=== PATIENT | male | born 1960 | race Caucasian/White ===

== ENCOUNTER 2018-11-30 21:41 | Observation (INO) | payer SELFPAY ==
[~2018-11-30] VITALS: Ht 172.7 cm; Wt 77.6 kg
[2018-11-30 22:13] LABS: BASOPHILS # (AUTO) 0.1 (0.0-0.1); BASOPHILS % 0.5 % (0.0-1.0); EOSINOPHILS # (AUTO) 0.1 (0.0-0.4); EOSINOPHILS % 0.7 % (0.0-6.0); HEMATOCRIT 49.3 % (38.2-49.6); HEMOGLOBIN 16.8 g/dL (14.0-18.0); LYMPHOCYTES # (AUTO) 1.8 (1.0-3.2); LYMPHOCYTES % 17.2 % (18.0-39.1); MEAN CORPUSCULAR HEMOGLOBIN 31.6 pg (28-32); MEAN CORPUSCULAR HGB CONC 34.1 g/dL (31-35); MEAN CORPUSCULAR VOLUME 92.7 fL (81-99); MONOCYTES # (AUTO) 0.5 (0.2-0.8); MONOCYTES % 4.9 % (4.4-11.3); NEUTROPHILS % 76.3 % (38.7-80.0); PLATELET COUNT 253 x10e3/uL (140-360); RED BLOOD COUNT 5.32 x10e6/uL (4.3-5.7); RED CELL DISTRIBUTION WIDTH 13.2 % (11.7-14.4)
[2018-11-30 22:28] LABS: ALANINE AMINOTRANSFERASE 16 IU/L (0-55); ALBUMIN 4.2 g/dL (3.5-5.0); ALBUMIN/GLOBULIN RATIO 1.3 (0.8-2.0); ALKALINE PHOSPHATASE 60 IU/L (40-150); BLOOD UREA NITROGEN 14 mg/dL (7-26); BUN/CREATININE RATIO 17 (6-25); CALCIUM 9.7 mg/dL (8.4-10.2); CARBON DIOXIDE 25 mmol/L (22-29); CHLORIDE 104 mmol/L (98-107); CREATINE KINASE 107 IU/L (30-200); CREATININE, SERUM 0.81 mg/dL (0.72-1.25); EST GLOMERULAR FILTRATION RATE > 60 ML/MIN (60-); GLUCOSE 85 mg/dL (74-118); SODIUM 138 mmol/L (136-145)
[2018-11-30 22:48] LABS: BILIRUBIN,URINE NEGATIVE (NEGATIVE); CLARITY,URINE CLEAR (CLEAR); COLOR,URINE YELLOW (YELLOW); KETONES,URINE NEGATIVE (NEGATIVE); LEUKOCYTE ESTERASE ,URINE NEGATIVE (NEGATIVE); NITRITE,URINE NEGATIVE (NEGATIVE); PROTEIN,URINE DIPSTICK NEGATIVE (NEGATIVE); URINE UROBILINOGEN 0.2 mg/dL (0.2 - 1)
--- NOTE | 2018-11-30 22:55 | Diagnostic Imaging Report ---
EXAMINATION: Head CT without contrast. HISTORY:Dizziness, altered mental status. COMPARISON:None. TECHNIQUE: Multidetector axial images were obtained from the foramen magnum to the vertex without contrast. The images were reconstructed using brain and bone algorithms. Thin section brain images were reformatted into coronal and sagittal planes. Dose modulation, iterative reconstruction, and/or weight based adjustment of the mA/kV was utilized to reduce the radiation dose to as low as reasonably achievable. Intravenous contrast: None IMAGE QUALITY: Acceptable. FINDINGS: Skull/scalp: No lytic or blastic. lesions. No surgical changes. Parenchyma: No abnormal density. No acute hemorrhage, mass or acute major vascular territorial infarct. Arteries: No density suggestive of thrombosis. Dural sinuses: No abnormal density suggestive of thrombosis. Ventricles: No hydrocephalus or displacement. Extra-axial spaces: No abnormal density. Brain volume: Normal for age. Craniocervical junction: No mass, Chiari malformation, or basilar invagination. Sella: No mass. Paranasal/mastoid sinuses: Imaged portions unremarkable. IMPRESSION: No intracranial abnormality. Signed by: Dr. Susan Flores M.D. on 11/30/2018 10:52 PM
[2018-11-30 23:01] LABS: BACTERIA,URINE FEW /HPF; EPITHELIAL CELLS,URINE FEW /LPF; WBC,URINE (MAN) 0-5 /HPF (0-5)
[2018-11-30] MEDS ORDERED: SODIUM CHLORIDE FLUSH 10 ML SYR INJ PRN (23:15)
[2018-11-30] MEDS ORDERED: ONDANSETRON HCL INJ 2MG/ML 2ML 2 MG/ML VIAL IV PRN (23:15)
--- NOTE | 2018-11-30 23:30 | Diagnostic Imaging Report ---
EXAMINATION: CHEST SINGLE (PORTABLE) INDICATION: Altered mental status COMPARISON: None FINDINGS: AP view TUBES and LINES: None. LUNGS: Lungs are well inflated. Lungs are clear. There is no evidence of pneumonia or pulmonary edema. PLEURA: No pleural effusion or pneumothorax. HEART AND MEDIASTINUM: The cardiomediastinal silhouette is unremarkable. Aortic arch calcifications. BONES AND SOFT TISSUES: No acute osseous lesion. Soft tissues are unremarkable. UPPER ABDOMEN: No free air under the diaphragm. IMPRESSION: No acute thoracic radiographic abnormality. Signed by: Jordan Rubio DO on 11/30/2018 11:27 PM
--- OUTSIDE RECORDS SUMMARY | 2018-11-30 23:36 | XMS REPORT ---
Author Author [facility] Address Unknown Phone Unavailable Care Team Providers Care Import And Export Clerk Name Role Phone Jeanette ROJAS Unavailable Unavailable Problems This patient has no known problems. Allergies, Adverse Reactions, Alerts This patient has no known allergies or adverse reactions. Medications This patient has no known medications. Results Test Description Test Time Test Comments Text Results Atomic Results Result Comments CHEST SINGLE (PORTABLE) 2018-11-30 23:25:00 [place] [address] Patient Name: RAYA PIMENTEL MR #: [id number] : 1960 Age/Sex: 58/M Req #: [id number] Adm Physician: Ordered by: SOHEILA ROJAS MD Report #: [id number] Location: ER Room/Bed: Procedure: [id number] DX/CHEST SINGLE (PORTABLE) Exam Date: 11/30/18 Exam Time: 2230 REPORT STATUS: Signed EXAMINATION: CHEST SINGLE (PORTABLE) I NDICATION: Altered mental status COMPARISON: None FINDINGS: AP view TUBES and LINES: None. LUNGS: Lungs are well inflated. Lungs are clear. There is no evidence of pneumonia or pulmonary edema. PLEURA: No pleural effusion or pneumothorax. HEART AND MEDIASTINUM: The cardiomediastinal silhouette is unremarkable. Aortic arch calcifications. BONES AND SOFT TISSUES: No acute osseous lesion. Soft tissues are unremarkable. UPPER ABDOMEN: No free air under the diaphragm. IMPRESSION: No acute thoracic radiographic abnormality. Signed by: Jordan Rubio DO on 11/30/2018 11:27 PM Dictated By: JORDAN RUBIO DO 26 Transcribed By: KAITY on 11/30/182326 COPY TO: SOHEILA ROJAS MD CT BRAIN WO 2018-11-30 22:47:00 [facility] [address] [place] [address] Patient Name: RAYA PIMENTEL MR #: [id number] : 1960 Age/Sex: 58/M Req #: [id number] Adm Physician: Ordered by: SOHEILA ROJAS MD Report #: [id number] Location: Room/Bed: Procedure: [id number] CT/CT BRAIN WO Exam Date: 11/30/18 Exam Time: 2220 REPORT STATUS: Signed EXAMINATION: Head CT without contrast. HISTORY:Diz ziness, altered mental status. COMPARISON:None. TECHNIQUE: Multidetector axial images were obtained from the foramen magnum to the vertex without contrast. The images were reconstructed using brain and bone algorithms. Thin section brain images were reformatted into coronal and sagittal planes. Dose modulation, iterative reconstruction, and/or weight based adjustment of the mA/kV was utilized to reduce the radiation dose to as low as reasonably achievable. Intravenous contrast: None IMAGE QUALITY: Acceptable. FINDINGS: Skull/scalp: No lytic or blastic. lesions. No surgical changes. Parenchyma: No abnormal density. No acute hemorrhage, mass or acute major vascular territorial infarct. Arteries: No density suggestive of thrombosis. Dural sinuses: No abnormal density suggestive of thrombosis. Ventricles: No hydrocephalus or displacement. Extra- axial spaces: No abnormal density. Brain volume: Normal for age. Craniocervical junction: No mass, Chiari malformation, or basilar invagination. Sella: No mass. Paranasal/mastoid sinuses: Imaged portions unremarkable. IMPRESSION: No intracranial abnormality. Signed by: Dr. Susan Flores M.D. on 11/30/2018 10:52 PM Dictated By: SUSAN FLORES MD 51 Transcribed By: KAITY on 11/30/182251 COPY TO: SOHEILA ROJAS MD
[2018-12-01] VITALS (9 sets, daily range): BP systolic 119–157; BP diastolic 62–79
--- NOTE | 2018-12-01 07:37 | NUR ---
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 Rounds by attending and orders in place for MRI brain and Carotid doppler to rule out any vascular etiologies, echo ordered to t/o any cardiac etiologies. Patient not on any home medications, call light within reach and will monitor.
[2018-12-01 08:27] LABS: BASOPHILS # (AUTO) 0.1 (0.0-0.1); BASOPHILS % 0.8 % (0.0-1.0); EOSINOPHILS # (AUTO) 0.1 (0.0-0.4); EOSINOPHILS % 1.8 % (0.0-6.0); HEMATOCRIT 47.6 % (38.2-49.6); HEMOGLOBIN 16.1 g/dL (14.0-18.0); LYMPHOCYTES # (AUTO) 2.5 (1.0-3.2); LYMPHOCYTES % 34.5 % (18.0-39.1); MEAN CORPUSCULAR HEMOGLOBIN 31.6 pg (28-32); MEAN CORPUSCULAR HGB CONC 33.8 g/dL (31-35); MEAN CORPUSCULAR VOLUME 93.3 fL (81-99); MONOCYTES # (AUTO) 0.5 (0.2-0.8); MONOCYTES % 6.8 % (4.4-11.3); NEUTROPHILS # (AUTO) 4.1 (2.1-6.9); NEUTROPHILS % 55.7 % (38.7-80.0); PLATELET COUNT 242 x10e3/uL (140-360); RED CELL DISTRIBUTION WIDTH 13.2 % (11.7-14.4)
[2018-12-01 08:50] LABS: ALANINE AMINOTRANSFERASE 14 IU/L (0-55); ALBUMIN 3.7 g/dL (3.5-5.0); ALBUMIN/GLOBULIN RATIO 1.2 (0.8-2.0); ALKALINE PHOSPHATASE 52 IU/L (40-150); ANION GAP 13.6 mmol/L (8-16); BLOOD UREA NITROGEN 14 mg/dL (7-26); BUN/CREATININE RATIO 17 (6-25); CALCIUM 9.2 mg/dL (8.4-10.2); CARBON DIOXIDE 25 mmol/L (22-29); CHLORIDE 104 mmol/L (98-107); CREATININE, SERUM 0.83 mg/dL (0.72-1.25); EST GLOMERULAR FILTRATION RATE > 60 ML/MIN (60-); GLUCOSE 131 mg/dL (74-118); POTASSIUM 3.6 mmol/L (3.5-5.1); SODIUM 139 mmol/L (136-145)
[2018-12-01] MEDS: NICOTINE 21 MG/EA PATCH TOP SCH (09:00)
--- NOTE | 2018-12-01 11:45 | History and Physical ---
REASON FOR ADMISSION: This is a 58-year-old gentleman, who comes in with disorientation. HISTORY OF PRESENT ILLNESS: Mr. Stewart who has no personal history of medications or medical history, was in usual state of health until the patient was going through his safety meeting and a turnaround, the patient has a long turnaround of 45 days, which he has been through 15 days sleep deprivation is noted. The patient turnaround and started walking, and the patient apparently reached to a place where he was not familiar with and the reason why he went there. The patient does not know the time frame for disorientation, but then he suddenly snapped and came to normalcy, and the patient came into the emergency room, and admitted for disorientation. PAST MEDICAL HISTORY: No hypertension, no hyperlipidemia, no diabetes. FAMILY HISTORY: Hypertension. PAST SURGICAL HISTORY: No history in the past. MEDICATIONS: None. ALLERGIES: NO DRUG ALLERGIES NOTED. SOCIAL HISTORY: The patient is a heavy smoker, smokes about a pack per day and for the last 40 years. The patient also has a history of drinking occasionally. No IV drug abuse noted. REVIEW OF SYSTEMS: Negative for chest pain. No shortness of breath. No nausea. No vomiting. No diarrhea. No constipation. No rectal bleeding. No diplopia. No blurry vision. Positive for disorientation as noticed above. No incontinence and no muscle strength loss or any sensory deficits. PHYSICAL EXAMINATION: GENERAL: The patient is alert and oriented x3, sleepy. VITAL SIGNS: Today, temperature is 96.6, pulse 64, respirations of 20, blood pressure is 147/73, and pulse oximeter of 94%. HEENT: Normocephalic, atraumatic. CVS: S1 and S2 normal. Regular rate and rhythm. ABDOMEN: Nontender, nondistended. EXTREMITIES: No clubbing, no cyanosis, no edema. NEUROLOGICAL: No focal signs seen. LABORATORY VALUES: The patient's white count is 10.45, hemoglobin of 16.8, hematocrit 49.3. Chemistry show sodium 138, potassium 4.0. All the liver enzymes essentially normal. IMAGING STUDIES: Chest x-ray was done, shows no acute thoracic abnormalities. The mediastinal silhouette is unremarkable. No pneumothorax or pleural effusion. Brain CT was done in the ER shows no intracranial abnormalities. ASSESSMENT: A 58-year-old male with history of smoking, shows up with disorientation. CT scan negative. PLAN: Rule out TIA. The patient will have an echocardiogram and also do an MRI of the brain and also a carotid Doppler. If all these are negative, the patient can be discharged home on aspirin. Further recommendation per clinical course. The patient also has been strongly advised again nicotine abstinence and the patient will be put on nicotine patch while he is in the hospital. MD ABHIJIT Hayes/ARA /[id number]
[2018-12-01 12:12] LABS: CREATINE KINASE 88 IU/L (30-200)
[2018-12-01 17:21] LABS: CREATINE KINASE 75 IU/L (30-200)
--- NOTE | 2018-12-01 20:00 | NUR ---
INITIAL ASSESSMENT COMPLETE, CALL LIGHT IN REACH, FAMILY AT BEDSIDE, PT HAS TELE ON, VS STABLE, NO DISTRESS NOTED, TOLD TO CALL FOR NEEDS
[2018-12-02 00:24] VITALS: BP 163/77
[2018-12-02 04:45] VITALS: BP 149/74
--- NOTE | 2018-12-02 06:35 | Progress Note ---
DATE: SUBJECTIVE: The patient is here for disorientation. CT scan was negative. The patient's carotid Dopplers showed no abnormalities. MRI is pending. No similar episodes have been noticed in the last 2 days admission. No chest pain. No shortness of breath and echo was normal at 60% to 65% with no carotid stenosis. MRI is pending. The patient is otherwise feeling good, ready to be discharged. No chest pain or shortness of breath. PHYSICAL EXAMINATION: VITAL SIGNS: Temperature is 96.6, respirations 16, blood pressure is 149/74, and pulse oximetry 96%. HEENT: Normocephalic and atraumatic. Pupils are reactive to light and accommodation. CVS: S1 and S2 normal. Regular rate and rhythm. LUNGS: Decreased air entry. ABDOMEN: Nontender and nondistended. EXTREMITIES: No clubbing, no cyanosis, no edema. NEUROLOGIC: Alert and oriented x3. No focal deficits noted. LABORATORY VALUES: Chemistries are normal. Hematology was also normal. Hemoglobin and hematocrit are normal. IMAGING STUDIES: As mentioned above, echo normal and also carotid normal, pending MRI. The patient to be discharged today pending MRI. We will also order LDL and start the patient on statin and also aspirin therapy. Further recommendation per clinical course. The patient also has been advised to stop smoking and nicotine avoidance and plan given to the patient. MD ABHIJIT Hayes/JUAN MANUELL /[id number]
[2018-12-02 07:56] VITALS: BP 153/75
[2018-12-02] MEDS: NICOTINE 21 MG/EA PATCH TOP SCH (09:00)
[2018-12-02 09:09] VITALS: BP 153/75
[2018-12-02] MEDS ORDERED: ONDANSETRON HCL 4 MG ORAL DISINTEGRATING TAB PO PRN (10:45)
[2018-12-02] MEDS ORDERED: ACETAMINOPHEN 325 MG TAB PO PRN (11:15)
[2018-12-02 12:55] VITALS: BP 166/87
[2018-12-02] MEDS ORDERED: SIMVASTATIN20 MG PO (14:35)
[2018-12-02 15:59] VITALS: BP 130/70
--- NOTE | 2018-12-02 16:34 | NUR ---
PT WHEELED OFF UNIT VIA WC FOR MRI, NO CHANGE IN CONDITION
--- NOTE | 2018-12-02 17:14 | NUR ---
PT BACK IN ROOM VIA WC FROM MRI, PENDING RESULTS TO CALL TO DR CARTER
--- NOTE | 2018-12-02 19:08 | Diagnostic Imaging Report ---
Exam: Brain MRI without IV contrast History: Confusion Comparison studies: Head CT 11/30/2018. Technique: Sagittal and axial T2 FS, axial DWI, axial T2*GRE, axial T1 FLAIR and axial coronal T2 FLAIR. Intravenous contrast: None Findings: Magnetic susceptibility artifact from metallic dental hardware limits evaluation of several pulse sequences. The DWI sequence is moderately limited due to image distortion. Scalp: Normal in signal. No masses. Bone marrow: Normal in signal intensity. Brain sulci: Appropriate for age. Ventricles: Mild asymmetry of the lateral ventricles with the left ventricular trigone being slightly more prominent than the contralateral side which may be an anatomical variant for this patient. No hydrocephalus. Extra-axial spaces: Mildly prominent extra-axial space of CSF density at the posterior at the left paramedian frontal neck CT the vertex may be a small arachnoid cyst. No other mass or fluid collection. Parenchyma: No mass or hemorrhage. A few scattered small T2 FLAIR hyperintense foci in the supratentorial white matter are nonspecific but are most compatible with chronic microvascular ischemic changes. The DWI sequence is markedly limited by susceptibility artifact from metallic hardware within the oral cavity. No abnormal restricted diffusion in the areas of the brain and not affected by artifact. Suprasellar region: No abnormalities. Craniocervical junction: Patent foramen magnum. No Chiari malformation. Vessels: Normal flow-voids in the arteries and sinuses. IMPRESSION: Susceptibility artifact due to metallic hardware within the oral cavity limits evaluation. 1. No mass or gross acute abnormalities. Evaluation for acute ischemia on the DWI sequence is limited by artifacts. 2. Mild chronic microvascular ischemic changes. Signed by: Dr. Ramirez Rod M.D. on 12/02/2018 7:04 PM
--- NOTE | 2018-12-02 20:15 | NUR ---
REMOVED IV AT THIS TIME. CATHETER TIP INTACT. PRESSURE DRESSING APPLIED.
--- NOTE | 2018-12-02 20:28 | NUR ---
PATIENT DISCHARGED AT THIS TIME. PATIENT RECEIVED DISCHARGE PAPERWORK, ENSURED PATIENT HAD PAPERWORK UPON HIS LEAVING ROOM. FOLLOW UP WITH MD CARTER IF NO OTHER PCP. STOP SMOKING THIS IS CONTRIBUTING TO SYMPTOMS. PATIENT VERBALIZED UNDERSTANDING. START TAKING OTC ASPIRING 81MG, PATIENT VERBALIZED UNDERSTANDING. ALL BELONGINGS TAKEN BY PATIENT AND . NO QUESTIONS STATED. VITALS STABLE.
== END 2018-12-02 20:28 | disposition home or self-care (01) ==
LOC: ER 21:41 → ERHOLD 23:33 → MED/SURG 12-01 00:37
PROVIDERS: ADMIT Family Medicine; ATTEND Family Medicine
DX: R41.0 Disorientation, unspecified (principal); F17.200 Nicotine dependence, unspecified, uncomplicated; Z82.49 Family history of ischemic heart disease and other diseases of the circulatory system
CPT/HCPCS: 36415 ×3; 70450; 70551; 71045; 80053 ×2; 80061; 81001; 82550 ×2; 82553 ×2; 84484 ×2; 85025 ×2; 93005; 93306; 93880; 99284; G0378 ×3